=== PATIENT | male | born 1955 | race Caucasian/White ===

== ENCOUNTER 2019-03-30 11:40 | Inpatient (IN) | payer BC, OTHER | END 2019-04-28 15:25 | disposition short-term general hospital (02) | LOC: F2N 04-07 18:11 → F2W 04-06 15:40 → F2N 16:22 ==

== ENCOUNTER 2019-04-28 15:50 | Emergency (ER) | payer BC | END 2019-04-28 18:20 | disposition home or self-care (01) ==